=== PATIENT | male | born 1970 | race Caucasian/White ===

== ENCOUNTER 2018-01-02 21:50 | Emergency (ER) | payer MEDICAID ==
[~2018-01-02] VITALS: Ht 177.8 cm; Wt 74.8 kg
[2018-01-02 22:25] VITALS: BP 117/67
--- NOTE | 2018-01-03 00:50 | Emergency Room Report ---
History of Present Illness General Chief Complaint: Upper Extremity Injury Source: Patient Present Illness HPI Patient presents with complaints of discomfort to the left index finger on the palmar aspect Reports that about one year ago the area appears to be filled with fluid However the area has become more tender and swollen over the past several weeks Denies any fevers or chills Patient works with tiles and laying floor Denies any other trauma he reports that about one year ago he had taken an x- ray and there was no signs of foreign body Allergies: Coded Allergies: No Known Allergies (Unverified , 01/02/18) Patient History Past Medical History: see triage record Pertinent Family History: none Reviewed Nursing Documentation: PMH: Agreed; PSxH: Agreed Nursing Documentation-PMH Past Medical History: No Stated History Review of Systems All Other Systems: negative except mentioned in HPI Physical Exam Vital Signs Date Time Temp Pulse Resp B/P (MAP) Pulse Ox O2 Delivery O2 Flow Rate FiO2 01/02/18 21:56 98.1 96 18 117/67 99 Room Air 98.1 Sp02 EP Interpretation: reviewed, normal General Appearance: well appearing, no apparent distress Head: normocephalic, atraumatic Eyes: bilateral eye PERRL, bilateral eye EOMI ENT: hearing grossly normal, normal pharynx Neck: supple Musculoskeletal: other - On the palmar aspect of the left hand on the index finger, there is a palpable hard nodule, mildly tender on palpation, patient's sensory is otherwise intact and also flexion at the finger is intact Neurologic: alert, oriented x3, responsive Skin: other - As above Lymphatic: no adenopathy Medical Decision Making Diagnostic Impression: Primary Impression: finger mass ER Course Patient reports that he has already had an x-ray previously and would like to not repeat that The area has a well demarcated region on palpation does not palpate as a fluctuant region I feel that this area requires close attention by hand specialist further evaluation and possible incision and biopsy as needed Patient is provided with referral and requires close follow-up Last Vital Signs Date Time Temp Pulse Resp B/P (MAP) Pulse Ox O2 Delivery O2 Flow Rate FiO2 01/02/18 22:25 98.1 18 117/67 99 Room Air 98.1 01/02/18 21:56 96 Status: unchanged Disposition: HOME, SELF-CARE Condition: Stable Referrals: AMELIA MARRERO M.D. Patient Instructions: Fingertip Infection, Excision of Skin Lesions, Care After Additional Instructions: Patient is provided with the discharge instructions notified to follow up with primary doctor in the next 2-3 days otherwise return to the er with any worsening symptoms. Please note that this report is being documented using DRAGON technology. This can lead to erroneous entry secondary to incorrect interpretation by the dictating instrument. Wilson Davey DO Jan 03, 2018 00:50
== END 2018-01-02 22:30 | disposition home or self-care (01) ==
LOC: EMR 22:30
DX: R22.31 Localized swelling, mass and lump, right upper limb (principal)
CPT/HCPCS: 99282